=== PATIENT | female | born 1955 | race Caucasian/White ===

== ENCOUNTER 2017-04-27 08:12 | Day surgery (SDC) | payer OTHER ==
[2017-04-27] MEDS ORDERED: D5 LR 1000 ML 1,000 ML IV ONE (08:27)
[2017-04-27] MEDS ORDERED: DIPRIVAN VIAL 20 ML ONE (10:06)
[2017-04-27 12:08] VITALS: BP 117/65
== END 2017-04-27 10:50 | disposition home or self-care (01) ==
LOC: SURG1 08:12
PROVIDERS: ATTEND Internal Medicine Gastroenterology
PROC: 0D757ZZ Dilation of Esophagus, Via Natural or Artificial Opening (ICD-10-PCS; principal; 2017-04-27 11:15)
PROC: 0DB68ZX Excision of Stomach, Via Natural or Artificial Opening Endoscopic, Diagnostic (ICD-10-PCS; principal; 2017-04-27 11:15)
PROC: 0DJ08ZZ Inspection of Upper Intestinal Tract, Via Natural or Artificial Opening Endoscopic (ICD-10-PCS; principal; 2017-04-27 11:15)
PROC: 0DB88ZX Excision of Small Intestine, Via Natural or Artificial Opening Endoscopic, Diagnostic (ICD-10-PCS; principal; 2017-04-27 11:15)
DX: R13.19 Other dysphagia (principal); R10.13 Epigastric pain; K21.9 Gastro-esophageal reflux disease without esophagitis; R19.7 Diarrhea, unspecified; K29.60 Other gastritis without bleeding; K20.8 Other esophagitis; K22.2 Esophageal obstruction; K57.10 Diverticulosis of small intestine without perforation or abscess without bleeding; R10.84 Generalized abdominal pain
CPT/HCPCS: A4217; J3490; J7120

== ENCOUNTER 2017-06-01 06:57 | Day surgery (SDC) | payer OTHER ==
[2017-06-01] MEDS ORDERED: NS 1000 ML 1,000 ML ONE (07:17)
[2017-06-01] MEDS ORDERED: DIPRIVAN VIAL 20 ML ONE ×2 (08:47→09:01)
[2017-06-01] MEDS ORDERED: XYLOCAINE 2 % (PLAIN) ONE (08:47)
[2017-06-01 09:38] VITALS: BP 140/65
== END 2017-06-01 09:34 | disposition home or self-care (01) ==
LOC: SURG1 06:57
PROVIDERS: ATTEND Internal Medicine Gastroenterology
PROC: 0DBE8ZX Excision of Large Intestine, Via Natural or Artificial Opening Endoscopic, Diagnostic (ICD-10-PCS; principal; 2017-06-01 07:30)
PROC: 0DJD8ZZ Inspection of Lower Intestinal Tract, Via Natural or Artificial Opening Endoscopic (ICD-10-PCS; principal; 2017-06-01 07:30)
DX: R10.84 Generalized abdominal pain (principal); R19.4 Change in bowel habit; K92.1 Melena; K64.0 First degree hemorrhoids
CPT/HCPCS: A4217; J2001; J3490